=== PATIENT | female | born 1980 | race Caucasian/White ===

== ENCOUNTER 2018-06-30 02:31 | Inpatient (IN) | payer OTHER ==
[2018-06-30] MEDS ORDERED: AMMONIA AROMATIC 1 EACH AMP IH PRN (05:05)
[2018-06-30] MEDS ORDERED: LR 1,000 ML IV PRN (05:05)
[2018-06-30] MEDS ORDERED: LIDOCAINE 1% 300 MG/30 ML SDV SC PRN (05:05)
[2018-06-30] MEDS ORDERED: IBUPROFEN 600 MG TAB PO PRN (05:05)
[2018-06-30] MEDS ORDERED: OXYTOCIN/RINGERS LACTATE 1,000 ML IV PRN (05:05)
[2018-06-30] MEDS ORDERED: MISOPROSTOL 200 MCG TAB PO PRN (05:05)
[2018-06-30] MEDS ORDERED: EPSOM SALT 454 GM TP PRN (05:05)
[2018-06-30] MEDS ORDERED: TERBUTALINE SULFATE 1 MG/ML VIAL IV PRN (05:05)
[2018-06-30] MEDS ORDERED: OLIVE OIL 118 ML BTL MISC PRN (05:05)
[2018-06-30] MEDS ORDERED: PENICILLIN G POTASSIUM 5,000,000 UNIT in D5W 150 ML IV ONE (05:05)
--- NOTE | 2018-06-30 05:16 | PDGENHP ---
History and Physical - Chief Complaint Early labor - History of Present Illness 37 yo G1 at 40w1d by HUNG of 06/29/18 (LMP cw 9wk US) - presents for labor check in early labor. Initially 3-4cm, made small change to 4cm over 2 hour interval , with subjectively more painful ctx's. Does not think her water broke. GBS positive, no allergies. otherwise complicated by Rh neg, Rubella NON- immune. No other major issues. Labs: O negative Antibody negative HIV/RPR/HepB neg Rubella NON-IMMUNE Standard panel neg GC/C neg NIPT normal Glucola 113 Rhogam given 04/10/18 GBS POSITIVE History Information - Allergies/Home Medication List Allergies/Adverse Reactions: No Known Allergies Allergy (Unverified 06/12/09 09:00) I have personally reviewed and updated: family history, medical history, social history, surgical history - Past Medical History no pertinent PMH - Surgical History Reports: no pertinent surgical hx Additional surgical history: [place] teeth - Family History Positive for: non-pertinent - Social History Alcohol Use: None Review of Systems Review of Systems: ROS: 10pt was reviewed & negative except for what was stated in HPI & below Physical Exam Physical Exam: NAD, alert, pleasant. Belly gravid, soft, longitudinal lie. FHR 140bpm, mod rodney, accels present, no decels Category I Assessment & Plan Assessment: 37 yo G1 at 40w1d presents in early labor. - Will start PCN now and start Pit after 2 hours. - GBS pos - PCN. - Rh neg, RhoGam if indicated PP. - Rubella NON-immune, MMR PP. JM
[2018-06-30 05:57] LABS: PLATELET COUNT 199 10^3/uL (150-400)
[2018-06-30] MEDS ORDERED: TERBUTALINE SULFATE 1 MG/ML VIAL ONE (08:29)
[2018-06-30] MEDS ORDERED: AMMONIA AROMATIC 1 EACH AMP IH ONE (08:29)
[2018-06-30] MEDS ORDERED: OXYTOCIN 10 UNIT/ML VIAL ONE (08:29)
[2018-06-30] MEDS ORDERED: OLIVE OIL 118 ML BTL ONE (08:29)
[2018-06-30] MEDS ORDERED: MISOPROSTOL 200 MCG TAB ONE (08:29)
[2018-06-30] MEDS ORDERED: LIDOCAINE 1% 300 MG/30 ML SDV ONE (08:29)
[2018-06-30] MEDS: PENICILLIN G POTASSIUM 2,500,000 UNIT in D5W 150 ML IV SCH ×3 (09:53→19:40)
[2018-06-30] MEDS ORDERED: PHENYLEPHRINE HCL 100 MCG/ML SYR ONE (10:51)
[2018-06-30] MEDS ORDERED: BUPIVACAINE 0.25% 30 ML SDV ONE (10:51)
[2018-06-30] MEDS ORDERED: fentaNYL 2MCG/ML/BUP 0.1% RTU 100 ML BAG EP ONE (10:51)
[2018-06-30] MEDS ORDERED: fentaNYL 100 MCG/2 ML INJ ONE (10:52)
--- NOTE | 2018-06-30 11:23 | OBPROG ---
Labor Progress Note Assessment/Plan: Assessment: IUP at 40w1d AROM at 9:50 at 590/-1 GBS + and has had 2 doses abx Plan: pit if ctxns peter out, FRIDA when desired 06/30/18 11:19 Subjective/Intrapartum Course: 06/30/18 11:23 Pt uncomfortable - back hurting, ctxns have spaced a bit and wants AROM. Happy to be more effaced - now /-1 AROM at 9:50 with blood tinged fluid Objective: 06/30/18 05:42 Patient ABO/Rh O NEGATIVE 06/30/18 05:42 - SVE Dilation (cm): 5 Effacement (%): 90 Station: -1 Membranes: AROM Amniotic Fluid Color: Bloody - Contraction Pattern Assessment Current Contraction Pattern: Irregular (q 3-6 min) - FHR Assessment Luong FHR (bpm): 140 FHR Pattern Variability: Moderate FHR Category: 1 - AP Antepartum Course: 06/30/18 11:27 uncomplicated Oxytocin Orders Assessment - Pre-Induction/Augmentation Assessment Gestational Age: 40 week(s) and 1 day(s) ICD10 Worksheet Patient Problems: Problems Problem Status Onset Normal labor Acute - ICD10 Problem Qualifiers (1) Normal labor
[2018-06-30] MEDS ORDERED: LR 500 ML IV PRN (11:27)
[2018-06-30] MEDS ORDERED: OXYTOCIN/RINGERS LACTATE 500 ML IV SCH (11:30)
--- NOTE | 2018-06-30 12:23 | OBPROG ---
Labor Progress Note Assessment/Plan: Assessment: IUP at 40w1d AROM at 9:50 at 590/-1 GBS + and has had 2 doses abx decel after FRIDA - BP related, improved now with accels will add pitocen Plan: begin pit 06/30/18 11:19 06/30/18 12:20 Subjective/Intrapartum Course: 06/30/18 11:23 Pt uncomfortable - back hurting, ctxns have spaced a bit and wants AROM. Happy to be more effaced - now /-1 AROM at 9:50 with blood tinged fluid 06/30/18 12:21 comfortable with FRIDA, ok with pitocin to stim labor. no repeat exam. light mec noted with fluid prior to FRIDA - BP drop after FRIDA and transient decel. Objective: 06/30/18 05:42 Patient ABO/Rh O NEGATIVE 06/30/18 05:42 - SVE Membranes: AROM Amniotic Fluid Color: Meconium Stained (noted before FRIDA), Bloody - Contraction Pattern Assessment Current Contraction Pattern: Irregular (q 3-6 min) - FHR Assessment Luong FHR (bpm): 140 FHR Pattern Variability: Moderate FHR Category: 1 (accels now after improved BP. transient decel after hypotension with FRIDA) - AP Antepartum Course: 06/30/18 11:27 uncomplicated Oxytocin Orders Assessment - Pre-Induction/Augmentation Assessment Gestational Age: 40 week(s) and 1 day(s) ICD10 Worksheet Patient Problems: Problems Problem Status Onset Normal labor Acute - ICD10 Problem Qualifiers (1) Normal labor
[2018-06-30] MEDS ORDERED: ONDANSETRON 4 MG/2 ML VIAL IVP PRN (13:46)
[2018-06-30] MEDS ORDERED: PHENYLEPHRINE HCL 100 MCG/ML SYR IVP PRN (13:46)
--- NOTE | 2018-06-30 13:51 | PREANESOB ---
Obstetric Pre-Anesthesia Info - General Info Proposed Procedure: Labor and delivery. : 1 Para: 0 HUNG: 06/29/18 Gestational Age: 40 week(s) and 1 day(s) - Info Status: Full Term Monitors: External FHR Baseline (bpm): 150 FHR Pattern: Non-reassuring - Labor Status Cervical Dilation per last OB SVE: 5 Station per last OB SVE: -1 Amniotic Fluid Color: Meconium Stained (noted before FRIDA), Bloody Indications for Labor Analgesia: Pain Control Labor Epidural: Proposed Anesthesia ROS: [place] teeth removed. Allergies/Adverse Reactions: Allergy/AdvReac Type Severity Reaction Status Date / Time No Known Allergies Allergy Unverified 06/12/09 09:00 Visit Medications: Generic Name Dose Route Start Last Admin Trade Name Freq PRN Reason Stop Dose Admin Ammonia (Aromatic Spirit) 1 each 06/30/18 05:05 Ammonia Aromatic IH 07/10/18 05:04 ONCE PRN Fainting Lactated Ringer's 1,000 mls @ 0 mls/hr 06/30/18 05:05 Lr IV 07/01/18 05:04 PRN PRN SEE PROTOCOL CONDITIONS Protocol Per Protocol Oxytocin/Lactated Ringer's 1,000 mls @ 0 mls/hr 06/30/18 05:05 Pitocin 20 Units/Lr (Premix) IV PRN PRN Post bleeding Per Protocol Penicillin G Potassium 2,500, 155 mls @ 155 mls/hr 06/30/18 09:00 06/30/18 09 :53 000 unit/ Dextrose IV 07/30/18 08:59 155 mls Q4H DEVANG Administration Protocol Lactated Ringer's 500 mls @ 500 mls/hr 06/30/18 11:27 Lr IV 07/01/18 11:27 PRN PRN Maternal Hypotension Oxytocin/Lactated Ringer's 500 mls @ 0 mls/hr 06/30/18 11:30 06/30/18 12:33 Pitocin 30 Units/Lr (Premix) IV 12/27/18 11:29 500 mls CONT DEVANG Administration Protocol Per Protocol Ibuprofen 600 mg 06/30/18 05:05 Motrin PO ONCE PRN post , pain Lidocaine HCl 300 mg 06/30/18 05:05 Lidocaine Hcl 1% SC 12/27/18 05:04 ONCE PRN episiotomy Magnesium Sulfate 454 gm 06/30/18 05:05 Epsom Salt TP 12/27/18 05:04 Q1H PRN perineal discomfort Misoprostol 800 - 1,000 mcg 06/30/18 05:05 Cytotec PO 12/27/18 05:04 ONCE PRN Vaginal Atony/Bleeding [place] Oil 118 ml 06/30/18 05:05 Sweet Oil MISC 12/27/18 05:04 ONCE PRN perineal massage Terbutaline Sulfate 0.25 mg 06/30/18 05:05 Brethine IV 12/27/18 05:04 ONCE PRN Tachysystole Discontinued Medications Generic Name Dose Route Start Last Admin Trade Name Freq PRN Reason Stop Dose Admin Ammonia (Aromatic Spirit) Confirm 06/30/18 08:29 Ammonia Aromatic Administered 06/30/18 08:30 Dose 1 each IH .STK-MED ONE Bupivacaine HCl Confirm 06/30/18 10:51 Sensorcaine 0.25% Sdv Administered 06/30/18 10:52 Dose 30 ml .ROUTE .STK-MED ONE Fentanyl Confirm 06/30/18 10:52 Sublimaze Administered 06/30/18 10:53 Dose 100 mcg .ROUTE .STK-MED ONE Fentanyl/Bupivacaine HCl Confirm 06/30/18 10:51 Fentanyl/Bupivacaine/Ns 2 Mcg/Ml 0.1% (Premix Administered 06/30/18 10:52 Dose 100 ml EP .STK-MED ONE Penicillin G Potassium 5,000, 160 mls @ 160 mls/hr 06/30/18 05:05 06/30/18 05 :48 000 unit/ Dextrose IV 06/30/18 06:04 160 mls ONCE ONE Administration Protocol Lidocaine HCl Confirm 06/30/18 08:29 Lidocaine Hcl 1% Administered 06/30/18 08:30 Dose 300 mg .ROUTE .STK-MED ONE Misoprostol Confirm 06/30/18 08:29 Cytotec Administered 06/30/18 08:30 Dose 1,000 mcg .ROUTE .STK-MED ONE [place] Oil Confirm 06/30/18 08:29 Sweet Oil Administered 06/30/18 08:30 Dose 118 ml .ROUTE .STK-MED ONE Oxytocin Confirm 06/30/18 08:29 Pitocin Administered 06/30/18 08:30 Dose 40 unit .ROUTE .STK-MED ONE Phenylephrine HCl Confirm 06/30/18 10:51 Neosynephrine Administered 06/30/18 10:52 Dose 1,000 mcg .ROUTE .STK-MED ONE Terbutaline Sulfate Confirm 06/30/18 08:29 Brethine Administered 06/30/18 08:30 Dose 1 mg .ROUTE .STK-MED ONE - Anesthesia History Response to Local Anesthetics: Normal Anesthesia & Operative History: No Prior Problems Family Anesthesia History: Negative - Social History Substance Use/Abuse: Denies - Vital Signs Blood Pressure: 114/80 Heart Rate: 115 Height/Weight (Nursing): Height 162.56 cm Weight 92.533 kg - Focused Exam Neck exam: FROM Mallampati Score: Class 2 Mouth exam: normal dental/mouth exam Pulmonary: no respiratory distress Cardiovascular: regular rate and rhythym Labs: 06/30/18 05:42 Patient ABO/Rh O NEGATIVE 06/30/18 05:42 - Plan Anesthetic Plan: FRIDA Consent Signed and on Chart: Yes Patient/Guardian Understands and Agrees to Plan: Yes Urgent/Emergent Case: Sruthi blair completed preop but documented later for safe timely pt care
--- NOTE | 2018-06-30 13:52 | POSTANESTH ---
Post Anesthetic Evaluation Cardiovascular Status: Normal, Stable, Similar to Pre-Op Cond Respiratory Status: Normal, Stable Level of Consciousness/Mental Status: Can Participate in Eval Pain Control: Adequate, Prn Tx Ordered Nausea/Vomiting Control: Adequate, Prn Tx Ordered Complications Possibly Related to Anesthesia: None Noted
[2018-06-30] MEDS ORDERED: fentaNYL 2MCG/ML/BUP 0.1% RTU 100 ML EP SCH (14:00)
[2018-06-30] MEDS ORDERED: LR 500 ML IV SCH (14:00)
[2018-06-30] MEDS ORDERED: ACETAMINOPHEN 500 MG TAB ONE (15:06)
[2018-06-30] MEDS ORDERED: MEASLES,MUMPS&RUBELLA VACC/PF 0.5 ML VIAL SC ONE ×2 (16:47→17:00)
--- NOTE | 2018-06-30 16:51 | OBDEL ---
Info Type: Vaginal Presentation at Delivery: Vertex L&D Analgesia/Anesthesia Type: Epidural GBS+: Yes (3 doses) Antibiotic Used for + GBS: Ampicillin Intrapartum Medications: Generic Name Dose Route Start Last Admin Trade Name Freq PRN Reason Stop Dose Admin Acetaminophen 1,000 mg 06/30/18 22:00 06/30/18 15:08 Tylenol PO 12/27/18 21:59 1,000 mg Q8HRS DEVANG Administration Penicillin G Potassium 2,500, 155 mls @ 155 mls/hr 06/30/18 09:00 06/30/18 13 :53 000 unit/ Dextrose IV 07/30/18 08:59 155 mls Q4H DEVANG Administration Protocol Oxytocin/Lactated Ringer's 500 mls @ 0 mls/hr 06/30/18 11:30 06/30/18 12:33 Pitocin 30 Units/Lr (Premix) IV 12/27/18 11:29 500 mls CONT DEVANG Administration Protocol Per Protocol Discontinued Medications Generic Name Dose Route Start Last Admin Trade Name Freq PRN Reason Stop Dose Admin Penicillin G Potassium 5,000, 160 mls @ 160 mls/hr 06/30/18 05:05 06/30/18 05 :48 000 unit/ Dextrose IV 06/30/18 06:04 160 mls ONCE ONE Administration Protocol - Care Provider [employer] Comp[employer] Inspector/LINING BRUSHER: Mildred Nava - [facility] Course Intrapartum: 06/30/18 11:23 Pt uncomfortable - back hurting, ctxns have spaced a bit and wants AROM. Happy to be more effaced - now 5/90/-1 AROM at 9:50 with blood tinged fluid 06/30/18 12:21 comfortable with FRIDA, ok with pitocin to stim labor. no repeat exam. light mec noted with fluid prior to FRIDA - BP drop after FRIDA and transient decel. Indications for Delivery: Spontaneous Labor Vaginal Delivery - Delivery Provider Delivery Physician/CNM: Paula Ospina - Labor and Delivery Onset of Contractions Date: 06/29/18 Onset of Contractions Time: 22:00 Onset of Contractions Type: Augmented Rupture of Membranes Date: 06/30/18 Rupture of Membranes Time: 09:50 Rupture of Membranes Type: Artificial Amniotic Fluid Color: Meconium Stained (noted before FRIDA), Bloody Dilation Complete Date: 06/30/18 Dilation Complete Time: 15:14 Placenta Delivery Date: 06/30/18 Placenta Delivery Time: 16:24 Total Hours of Labor: 18 Non-surgical Procedures: Amniotomy Laceration: 1st Degree (midline vaginal) Repair: 3-0, Vicryl Vaginal Sponge Count Correct: Yes Vaginal Needle Count Correct: Yes Vaginal Sweep Performed: Yes EBL: 350 Delivery Events: None - Medications Labor Augmentation/Induction Methods Used: Pitocin Labor Augmentation/Induction Indication: Inadequate Contraction Strength Data HUNG: 06/29/18 Gestational Age: 40 week(s) and 1 day(s) Luong Delivery Date: 06/30/18 Delivery Time: 16:16 Sex of : Female Score (1 Min): 8 Score (5 Min): 9 ICD10 Worksheet Patient Problems: Problems Problem Status Onset (spontaneous vaginal delivery) Acute - ICD10 Problem Qualifiers (1) Normal labor
[2018-06-30] MEDS: ACETAMINOPHEN 325 MG TAB PO SCH ×2 (19:39→21:50)
[2018-06-30] MEDS ORDERED: ACETAMINOPHEN 500 MG TAB PO SCH (22:00)
[2018-07-01] MEDS: IBUPROFEN 600 MG TAB PO SCH ×5 (01:35→21:46)
[2018-07-01] MEDS: ACETAMINOPHEN 325 MG TAB PO SCH ×3 (06:22→19:28)
--- NOTE | 2018-07-01 08:05 | OBPP ---
Progress Note Assessment/Plan: Assessment: 1) s/p PPD # 1 - pt is stable 2) Rh negative - Rhogam eval 3) Rubella nonimmune - MMR vaccine Plan: Continue routine pp care Encourage ambulation If Rhogam is given, hold off on MMR vaccine and will get at a later time support prn Plan for d/c home in am 07/0207/01/18 08:01 Subjective/ Course: 07/01/18 08:04 Pt seen and examined. Doing well, breast feeding this am. Denies any cramping or pain. Mod lochia. Pt is OOB, hawa regular diet, voiding without difficulty and passing flatus. No BM. BF going well so far, notes baby girl is spitting up a lot. Objective: 06/30/18 05:42 Patient ABO/Rh O NEGATIVE 06/30/18 05:42 Temp Pulse Resp BP Pulse Ox 36.6 C 98 18 102/68 95 06/30/18 22:16 06/30/18 22:16 06/30/18 22:16 06/30/18 22:16 06/30/18 22:16 Uterine Position/Fundal Height: Umbilicus -2 Uterine Tone: Firm Physical Exam - Physical Exam General Appearance: WD/WN, alert, no apparent distress Respiratory: lungs clear, normal breath sounds Cardiac/Chest: regular rate, rhythm Abdomen: normal bowel sounds, non-tender, soft, flatus (+) Extremities: non-tender, normal inspection Skin: normal color, warm/dry Neuro/Psych: alert, normal mood/affect, oriented x 3
[2018-07-01 22:12] VITALS: BP 112/83
[2018-07-02] MEDS: ACETAMINOPHEN 325 MG TAB PO SCH ×2 (03:04→06:04)
[2018-07-02] MEDS: IBUPROFEN 600 MG TAB PO SCH (06:03)
--- NOTE | 2018-07-02 08:33 | OBGCSDC ---
General Delivery Information - General Info : 1 Para: 1 Abortions: 0 Type: Vaginal L&D Analgesia/Anesthesia Type: Epidural Admission Date: 06/30/18 Labs: Patient ABO/Rh O NEGATIVE 07/01/18 11:45 Hct 40.8 % (38.0-47.0) 06/30/18 05:42 - Hospital Course Antepartum: 06/30/18 11:27 uncomplicated Intrapartum: 06/30/18 11:23 Pt uncomfortable - back hurting, ctxns have spaced a bit and wants AROM. Happy to be more effaced - now /- AROM at 9:50 with blood tinged fluid 06/30/18 12:21 comfortable with FRIDA, ok with pitocin to stim labor. no repeat exam. light mec noted with fluid prior to FRIDA - BP drop after FRIDA and transient decel. : 07/01/18 08:04 Pt seen and examined. Doing well, breast feeding this am. Denies any cramping or pain. Mod lochia. Pt is OOB, hawa regular diet, voiding without difficulty and passing flatus. No BM. BF going well so far, notes baby girl is spitting up a lot. Vaginal - Delivery Provider Delivery Physician/CNM: Paula Ospina - Diagnosis Labor: Augmented Rupture of Membranes Type: Artificial Amniotic Fluid Color: Meconium Stained (noted before FRIDA), Bloody Laceration: 1st Degree (midline vaginal) Repair: 3-0, Vicryl Delivery Events: None - Procedures Non-surgical Procedures: Amniotomy - Delivery Non-surgical Procedures: Amniotomy EBL: 350 [place] Data HUNG: 06/29/18 Gestational Age: 40 week(s) and 3 day(s) Luong Delivery Date: 06/30/18 Delivery Time: 16:16 Sex of : Female Weight (gm): 3634 g Score (1 Min): 8 Score (5 Min): 9
--- NOTE | 2018-07-02 08:33 | OBPP ---
Progress Note Assessment/Plan: Assessment: Plan: Subjective/ Course: 07/01/18 08:04 Pt seen and examined. Doing well, breast feeding this am. Denies any cramping or pain. Mod lochia. Pt is OOB, hawa regular diet, voiding without difficulty and passing flatus. No BM. BF going well so far, notes baby girl is spitting up a lot. Objective: 06/30/18 05:42 Patient ABO/Rh O NEGATIVE 07/01/18 11:45 Temp Pulse Resp BP Pulse Ox 36.4 C 100 18 112/83 H 96 07/01/18 22:10 07/01/18 22:10 07/01/18 22:10 07/01/18 22:10 07/01/18 22:10
== END 2018-07-02 13:00 | disposition home or self-care (01) | DRG 807 ==
LOC: OBSVTOIN 02:31 → FLD 02:31 → FOB 20:01
PROVIDERS: ADMIT Obstetrics & Gynecology; ATTEND Obstetrics & Gynecology
PROC: 0HQ9XZZ Repair Perineum Skin, External Approach (ICD-10-PCS; principal; 2018-06-30)
PROC: 10907ZC Drainage of Amniotic Fluid, Therapeutic from Products of Conception, Via Natural or Artificial Opening (ICD-10-PCS; principal; 2018-06-30)
PROC: 10E0XZZ Delivery of Products of Conception, External Approach (ICD-10-PCS; principal; 2018-06-30)
DX: O99.824 Streptococcus B carrier state complicating childbirth (principal); O76 Abnormality in fetal heart rate and rhythm complicating labor and delivery; Z37.0 Single live birth; Z3A.40 40 weeks gestation of pregnancy; Z23 Encounter for immunization
CPT/HCPCS: J2370; J2540; J2590; J3010; J3105